=== PATIENT | male | born 2000 | race Caucasian/White ===

== ENCOUNTER 2022-12-23 11:45 | Inpatient (IN) | payer SELFPAY ==
[2022-12-23] MEDS ORDERED: Sodium Chloride 0.9% 10 ML Syringe FLUSH PRN (11:59)
[2022-12-23] MEDS ORDERED: Sodium Chloride 0.9% 2.5 ML Syringe FLUSH PRN (11:59)
[2022-12-23] MEDS ORDERED: Sodium Chloride 0.9% 1,000 ML IV STA ×2 (12:01)
[2022-12-23 12:05] LABS: BASOPHILS PERCENT AUTO 0.1 % (0.0-1.5); EOSINOPHILS PERCENT AUTO 0.2 % (0.0-7.0); HEMATOCRIT 50.3 % (38.0-50.0); HEMOGLOBIN 17.6 g/dL (13.0-17.0); LYMPHOCYTES ABSOLUTE AUTO 2.3 K/uL (0.6-2.4); LYMPHOCYTES PERCENT AUTO 18.5 % (16.0-40.0); MEAN CORPUSCULAR HEMOGLOBIN 31.1 pg (27.0-32.0); MEAN CORPUSCULAR VOLUME 88.9 fL (80.0-98.0); MONOCYTES ABSOLUTE AUTO 0.5 K/uL (0.0-0.8); MONOCYTES PERCENT AUTO 4.2 % (0.0-15.0); NEUTROPHILS ABSOLUTE AUTO 9.4 K/uL (1.4-5.7); NRBC ABSOLUTE 0 K/uL; PLATELET COUNT,PLT 476 K/uL (150-400); RED BLOOD CELL COUNT 5.66 M/uL (4.50-5.90); WHITE BLOOD CELL COUNT,WBC 12.15 K/uL (4.0-11.0)
[2022-12-23 12:17] LABS: MAGNESIUM 2.1 mg/dL (1.8-2.4); PHOSPHORUS 4.7 mg/dL (2.6-4.7)
[2022-12-23 12:20] LABS: ALBUMIN 3.6 g/dL (3.4-5.0); BASE EXCESS VENOUS -13.5 (-2.0-3.0); BILIRUBIN TOTAL 0.9 mg/dL (0.2-1.0); CALCIUM 9.6 mg/dL (8.5-10.1); CARBON DIOXIDE,CO2 15.1 mmol/L (21.0-32.0); CREATININE 1.4 mg/dL (0.8-1.3); EST CRCL DRUG DOSING (CG) 63.18 mL/min; PH,VENOUS 7.22 (7.31-7.41); PROTEIN TOTAL,TP 7.1 g/dL (6.4-8.2)
[2022-12-23] MEDS ORDERED: Insulin Regular in 0.9 % NACL 100 ML IV SCH (12:30)
[2022-12-23 13:03] LABS: BILIRUBIN,URINE NEGATIVE (NEGATIVE); COLOR,URINE YELLOW; GLUCOSE,URINE 500 mg/dL (NEGATIVE); KETONES,URINE >=80 mg/dL (NEGATIVE); PROTEIN,URINE NEGATIVE (NEGATIVE)
[2022-12-23 13:04] LABS: LEUKOCYTE ESTERASE,URINE NEGATIVE (NEGATIVE); NITRITE,URINE NEGATIVE (NEGATIVE); OCCULT BLOOD,URINE TRACE-INTACT (NEGATIVE); UROBILINOGEN,URINE 0.2 EU/dL (<2.0)
[2022-12-23 13:11] LABS: APPEARANCE,URINE HAZY
[2022-12-23 13:13] LABS: AMPHETAMINES SCREEN, URINE NEGATIVE (CUTOFF=500); BARBITURATE SCREEN,URINE NEGATIVE (CUTOFF=200); BENZODIAZEPINES SCREEN,URINE NEGATIVE (CUTOFF=150); BUPRENORPHINE SCREEN,URINE NEGATIVE (CUTOFF=10); METHADONE SCREEN, URINE NEGATIVE (CUTOFF=200); METHAMPHETAMINES SCREEN, URINE NEGATIVE (CUTOFF=500); OXYCODONE SCREEN,URINE NEGATIVE (CUT0FF=100); PCP SCREEN,URINE NEGATIVE (CUTOFF=25); PROPOXYPHENE SCREEN,URINE NEGATIVE (CUTOFF=300); THC SCREEN,URINE 20 NG/ML NEGATIVE (CUTOFF=50)
[2022-12-23 13:17] LABS: BACTERIA,URINE NOT SEEN (NEGATIVE); EPITHELIAL CELLS,URINE RARE (NONE-FEW); MUCUS,URINE LIGHT (NONE-MOD); RBC,URINE 0-1 (0-2/HPF); WBC,URINE NONE SEEN (0-5/HPF)
[2022-12-23] MEDS ORDERED: Pantoprazole 40 MG in Sodium Chloride 0.9% 10 ML IVPUSH SCH (14:45)
[2022-12-23] MEDS ORDERED: NS + KCl 20mEq/L 1,000 ML IV SCH (14:45)
[2022-12-23] MEDS ORDERED: Enoxaparin 40 MG/0.4 ML Syringe SUBCUT SCH (14:45)
[2022-12-23 15:42] LABS: CALCIUM 7.7 mg/dL (8.5-10.1); CARBON DIOXIDE,CO2 12.4 mmol/L (21.0-32.0); CREATININE 1.2 mg/dL (0.8-1.3); EST CRCL DRUG DOSING (CG) 73.71 mL/min; POTASSIUM,K 4.4 mmol/L (3.5-5.1)
[2022-12-23] MEDS: Acetaminophen 325 MG Tab PO PRN (15:43)
[2022-12-23 16:11] LABS: HEMOGLOBIN A1C >14.0 %
[2022-12-23] MEDS: Dextrose 5%-0.9% NaCl with KCl 1,000 ML IV SCH ×2 (17:56→23:10)
[2022-12-23 19:04] LABS: CALCIUM 7.6 mg/dL (8.5-10.1); CARBON DIOXIDE,CO2 17.6 mmol/L (21.0-32.0); CREATININE 0.9 mg/dL (0.8-1.3); EST CRCL DRUG DOSING (CG) 95.41 mL/min
[2022-12-23 23:01] LABS: CALCIUM 7.4 mg/dL (8.5-10.1); CREATININE 0.9 mg/dL (0.8-1.3); EST CRCL DRUG DOSING (CG) 95.41 mL/min; POTASSIUM,K 4.5 mmol/L (3.5-5.1)
[2022-12-24] MEDS ORDERED: Insuln Aspart Prot/Insulin Aspart 100 Units/ML 3 ML FlexPen SUBCUT ONE (02:30)
[2022-12-24 02:57] LABS: CALCIUM 7.4 mg/dL (8.5-10.1); CARBON DIOXIDE,CO2 22.1 mmol/L (21.0-32.0); CREATININE 0.8 mg/dL (0.8-1.3); EST CRCL DRUG DOSING (CG) 107.34 mL/min; POTASSIUM,K 3.6 mmol/L (3.5-5.1)
[2022-12-24 06:55] LABS: BASOPHILS PERCENT AUTO 0.1 % (0.0-1.5); EOSINOPHILS ABSOLUTE AUTO 0.1 K/uL (0.0-0.7); EOSINOPHILS PERCENT AUTO 0.9 % (0.0-7.0); HEMOGLOBIN 12.6 g/dL (13.0-17.0); LYMPHOCYTES ABSOLUTE AUTO 4.7 K/uL (0.6-2.4); MEAN CORPUSCULAR HEMOGLOBIN 30.5 pg (27.0-32.0); MEAN CORPUSCULAR VOLUME 87.2 fL (80.0-98.0); MONOCYTES ABSOLUTE AUTO 1.1 K/uL (0.0-0.8); MONOCYTES PERCENT AUTO 10.5 % (0.0-15.0); NEUTROPHILS ABSOLUTE AUTO 4.4 K/uL (1.4-5.7); NEUTROPHILS PERCENT AUTO 42.5 % (48.0-80.0); NRBC ABSOLUTE 0 K/uL; PLATELET COUNT,PLT 337 K/uL (150-400); RED BLOOD CELL COUNT 4.13 M/uL (4.50-5.90); WHITE BLOOD CELL COUNT,WBC 10.28 K/uL (4.0-11.0)
[2022-12-24 07:12] LABS: CALCIUM 7.5 mg/dL (8.5-10.1); CREATININE 0.7 mg/dL (0.8-1.3); EST CRCL DRUG DOSING (CG) 126.67 mL/min; POTASSIUM,K 3.3 mmol/L (3.5-5.1)
[2022-12-24] MEDS ORDERED: Insuln Aspart Prot/Insulin Aspart 100 Units/ML 3 ML FlexPen SUBCUT SCH ×2 (07:30→17:00)
[2022-12-24] MEDS: Insulin Regular, Human 100 Units/ML 10 ML Vial SUBCUT SCH ×2 (07:38→11:41)
[2022-12-24] MEDS: Acetaminophen 325 MG Tab PO PRN (10:58)
[2022-12-24] MEDS ORDERED: Insulin Glargine,Hum.Rec.Anlog 100 UNIT/ML 3 ML Pen SUBCUT SCH (11:00)
== END 2022-12-24 12:15 | disposition home or self-care (01) | DRG 638 ==
LOC: MW.ED 11:45 → UNDOADMIN 12:44 → MW.ICU 12:44
PROVIDERS: ADMIT Internal Medicine; ATTEND Internal Medicine
DX: E10.10 Type 1 diabetes mellitus with ketoacidosis without coma (principal); E87.1 Hypo-osmolality and hyponatremia; N17.9 Acute kidney failure, unspecified; R64 Cachexia; Z88.0 Allergy status to penicillin; Z88.2 Allergy status to sulfonamides; Z90.49 Acquired absence of other specified parts of digestive tract; Z98.890 Other specified postprocedural states; Z79.4 Long term (current) use of insulin; Z91.148 Patient's other noncompliance with medication regimen for other reason; Z68.20 Body mass index [BMI] 20.0-20.9, adult
CPT/HCPCS: 36415; 80048; 80053; 80305-QW; 80307; 81001; 82009; 82803; 82947; 83036; 83735; 84100; 85025; 96360; 99285; 99285-25; A9270-GY; C9113; J1650; J1815; J3480; J3490; J7030

== ENCOUNTER 2022-12-27 21:51 | Emergency (ER) | payer SELFPAY ==
[2022-12-27] MEDS ORDERED: Sodium Chloride 0.9% 2.5 ML Syringe FLUSH PRN (22:14)
[2022-12-27] MEDS ORDERED: Sodium Chloride 0.9% 1,000 ML IV ONE ×2 (22:14→22:54)
[2022-12-27] MEDS ORDERED: Sodium Chloride 0.9% 10 ML Syringe FLUSH PRN (22:14)
[2022-12-27] MEDS ORDERED: HYDROmorphone 1 MG/ML Syringe IVPUSH ONE (22:15)
[2022-12-27 22:25] LABS: BASOPHILS PERCENT AUTO 0.1 % (0.0-1.5); EOSINOPHILS ABSOLUTE AUTO 0.1 K/uL (0.0-0.7); HEMATOCRIT 37.2 % (38.0-50.0); HEMOGLOBIN 12.9 g/dL (13.0-17.0); LYMPHOCYTES ABSOLUTE AUTO 3.7 K/uL (0.6-2.4); LYMPHOCYTES PERCENT AUTO 35.4 % (16.0-40.0); MEAN CORPUSCULAR HEMOGLOBIN 31.9 pg (27.0-32.0); MEAN CORPUSCULAR HGB CONC 34.7 g/dL (31.0-37.0); MEAN CORPUSCULAR VOLUME 92.1 fL (80.0-98.0); MONOCYTES ABSOLUTE AUTO 0.8 K/uL (0.0-0.8); MONOCYTES PERCENT AUTO 7.9 % (0.0-15.0); NEUTROPHILS ABSOLUTE AUTO 5.8 K/uL (1.4-5.7); NEUTROPHILS PERCENT AUTO 55.6 % (48.0-80.0); NRBC ABSOLUTE 0 K/uL; PLATELET COUNT,PLT 368 K/uL (150-400); RED BLOOD CELL COUNT 4.04 M/uL (4.50-5.90); WHITE BLOOD CELL COUNT,WBC 10.45 K/uL (4.0-11.0)
[2022-12-27 22:27] LABS: APPEARANCE,URINE CLEAR; BILIRUBIN,URINE NEGATIVE (NEGATIVE); COLOR,URINE YELLOW; GLUCOSE,URINE >=1000 mg/dL (NEGATIVE); KETONES,URINE NEGATIVE (NEGATIVE); LEUKOCYTE ESTERASE,URINE NEGATIVE (NEGATIVE); NITRITE,URINE NEGATIVE (NEGATIVE); OCCULT BLOOD,URINE MODERATE (NEGATIVE); PH,URINE 7.5 (5.0-8.0); PROTEIN,URINE NEGATIVE (NEGATIVE)
[2022-12-27 22:35] LABS: A/G RATIO 0.9 (0.9-1.6); ALANINE AMINOTRANSFERASE,ALT 174 IU/L (14-63); ALBUMIN 2.9 g/dL (3.4-5.0); ALKALINE PHOSPHATASE 204 U/L (46-116); BILIRUBIN TOTAL 0.4 mg/dL (0.2-1.0); BLOOD UREA NITROGEN,BUN 19 mg/dL (7.0-18.0); CALCIUM 8.2 mg/dL (8.5-10.1); CARBON DIOXIDE,CO2 28.5 mmol/L (21.0-32.0); CHLORIDE,CL 102 mmol/L (98-107); CREATININE 0.9 mg/dL (0.8-1.3); EST CRCL DRUG DOSING (CG) 106.47 mL/min; ETHANOL BLOOD MEDICAL <3 mg/dL; GLUCOSE RANDOM 250 mg/dL (74-106); LIPASE 190 U/L (73-393); POTASSIUM,K 3.9 mmol/L (3.5-5.1); SODIUM,NA 139 mmol/L (136-148)
[2022-12-27 22:38] LABS: ESTIMATED GFR 123 mL/min (>60)
[2022-12-27 22:39] LABS: LACTIC ACID 3.4 mmol/L (0.4-2.0)
[2022-12-27 22:39] LABS: BACTERIA,URINE RARE (NEGATIVE); EPITHELIAL CELLS,URINE RARE (NONE-FEW); WBC,URINE 0-1 (0-5/HPF)
[2022-12-27 22:43] LABS: BASE EXCESS VENOUS 4.2 (-2.0-3.0); PH,VENOUS 7.43 (7.31-7.41)
[2022-12-27 22:43] LABS: AMPHETAMINES SCREEN, URINE PRESUMPTIVE POSITIVE (CUTOFF=500); BARBITURATE SCREEN,URINE NEGATIVE (CUTOFF=200); BENZODIAZEPINES SCREEN,URINE NEGATIVE (CUTOFF=150); BUPRENORPHINE SCREEN,URINE NEGATIVE (CUTOFF=10); METHADONE SCREEN, URINE NEGATIVE (CUTOFF=200); METHAMPHETAMINES SCREEN, URINE PRESUMPTIVE POSITIVE (CUTOFF=500); OXYCODONE SCREEN,URINE NEGATIVE (CUT0FF=100); PCP SCREEN,URINE NEGATIVE (CUTOFF=25); PROPOXYPHENE SCREEN,URINE NEGATIVE (CUTOFF=300); THC SCREEN,URINE 20 NG/ML NEGATIVE (CUTOFF=50)
[2022-12-27 23:05] LABS: ASPARTATE AMNIOTRANSFERASE,AST 264 IU/L (15-37)
[2022-12-27 23:25] LABS: PROTEIN TOTAL,TP 6.3 g/dL (6.4-8.2)
[2022-12-27] MEDS ORDERED: Iopamidol 755 MG/ML 500 ML Multipack Bottle IVPUSH STA (23:25)
== END 2022-12-28 02:40 | disposition home or self-care (01) ==
LOC: MW.ED 21:51
DX: R10.9 Unspecified abdominal pain (principal); E10.9 Type 1 diabetes mellitus without complications; Z88.0 Allergy status to penicillin; Z88.2 Allergy status to sulfonamides; Z72.0 Tobacco use
CPT/HCPCS: 36415; 74177; 80053; 80305; 80307; 81001; 82009; 82803; 82947; 83605; 83690; 83735; 85025; 96361; 96374; 99284; J1170; J3490; J7030; Q9967

== ENCOUNTER 2022-12-31 12:33 | Inpatient (IN) | payer SELFPAY ==
[2022-12-31] MEDS ORDERED: Lactated Ringers 1,000 ML IV STA ×2 (12:43→12:49)
[2022-12-31] MEDS ORDERED: Insulin Regular in 0.9 % NACL 100 ML IV SCH (13:00)
[2022-12-31 13:03] LABS: BASE EXCESS VENOUS -5.6 (-2.0-3.0); PH,VENOUS 7.29 (7.31-7.41)
[2022-12-31 13:05] LABS: BASOPHILS ABSOLUTE AUTO 0.1 K/uL (0.0-0.1); BASOPHILS PERCENT AUTO 0.6 % (0.0-1.5); EOSINOPHILS PERCENT AUTO 0.4 % (0.0-7.0); HEMATOCRIT 36.8 % (38.0-50.0); HEMOGLOBIN 12.5 g/dL (13.0-17.0); LYMPHOCYTES ABSOLUTE AUTO 2.2 K/uL (0.6-2.4); LYMPHOCYTES PERCENT AUTO 20.7 % (16.0-40.0); MEAN CORPUSCULAR HEMOGLOBIN 31.3 pg (27.0-32.0); MEAN CORPUSCULAR VOLUME 92.2 fL (80.0-98.0); MONOCYTES ABSOLUTE AUTO 0.7 K/uL (0.0-0.8); MONOCYTES PERCENT AUTO 6.1 % (0.0-15.0); NEUTROPHILS ABSOLUTE AUTO 7.7 K/uL (1.4-5.7); NEUTROPHILS PERCENT AUTO 72.2 % (48.0-80.0); PLATELET COUNT,PLT 436 K/uL (150-400); RED BLOOD CELL COUNT 3.99 M/uL (4.50-5.90); WHITE BLOOD CELL COUNT,WBC 10.65 K/uL (4.0-11.0)
[2022-12-31 13:36] LABS: MAGNESIUM 2.1 mg/dL (1.8-2.4); PHOSPHORUS 4.4 mg/dL (2.6-4.7)
[2022-12-31 13:38] LABS: A/G RATIO 0.9 (0.9-1.6); CALCIUM 8.4 mg/dL (8.5-10.1); CARBON DIOXIDE,CO2 21.4 mmol/L (21.0-32.0); CREATININE 0.9 mg/dL (0.8-1.3); EST CRCL DRUG DOSING (CG) 106.47 mL/min; PROTEIN TOTAL,TP 6.5 g/dL (6.4-8.2)
[2022-12-31] MEDS ORDERED: Sodium Chloride 0.9% 1,000 ML IV STA (13:50)
[2022-12-31 13:54] LABS: APPEARANCE,URINE CLEAR; BILIRUBIN,URINE NEGATIVE (NEGATIVE); COLOR,URINE YELLOW; GLUCOSE,URINE >=1000 mg/dL (NEGATIVE); KETONES,URINE >=80 mg/dL (NEGATIVE); LEUKOCYTE ESTERASE,URINE NEGATIVE (NEGATIVE); NITRITE,URINE NEGATIVE (NEGATIVE); OCCULT BLOOD,URINE NEGATIVE (NEGATIVE); PH,URINE 5.5 (5.0-8.0); PROTEIN,URINE NEGATIVE (NEGATIVE); UROBILINOGEN,URINE 0.2 EU/dL (<2.0)
[2022-12-31 14:03] LABS: AMPHETAMINES SCREEN, URINE NEGATIVE (CUTOFF=500); BARBITURATE SCREEN,URINE NEGATIVE (CUTOFF=200); BENZODIAZEPINES SCREEN,URINE NEGATIVE (CUTOFF=150); BUPRENORPHINE SCREEN,URINE NEGATIVE (CUTOFF=10); METHADONE SCREEN, URINE NEGATIVE (CUTOFF=200); METHAMPHETAMINES SCREEN, URINE NEGATIVE (CUTOFF=500); OXYCODONE SCREEN,URINE NEGATIVE (CUT0FF=100); PCP SCREEN,URINE NEGATIVE (CUTOFF=25); PROPOXYPHENE SCREEN,URINE NEGATIVE (CUTOFF=300); THC SCREEN,URINE 20 NG/ML NEGATIVE (CUTOFF=50)
[2022-12-31] MEDS ORDERED: Sodium Chloride 0.9% 1,000 ML IV SCH (15:45)
[2022-12-31] MEDS: Nicotine 7 MG/24 Hr Patch TRDERM SCH (17:17)
[2022-12-31] MEDS: Acetaminophen 325 MG Tab PO PRN (17:19)
[2022-12-31 17:20] LABS: CALCIUM 7.8 mg/dL (8.5-10.1); CARBON DIOXIDE,CO2 25.9 mmol/L (21.0-32.0); CREATININE 0.8 mg/dL (0.8-1.3); EST CRCL DRUG DOSING (CG) 112.31 mL/min; POTASSIUM,K 3.9 mmol/L (3.5-5.1)
[2022-12-31] MEDS: Dextrose 5%-0.45% NaCl 1,000 ML IV SCH (17:32)
[2022-12-31] MEDS: Amitriptyline 25 MG Tab PO SCH (20:51)
[2022-12-31 21:27] LABS: CALCIUM 7.3 mg/dL (8.5-10.1); CARBON DIOXIDE,CO2 23.4 mmol/L (21.0-32.0); CREATININE 0.8 mg/dL (0.8-1.3); EST CRCL DRUG DOSING (CG) 112.31 mL/min; POTASSIUM,K 4.1 mmol/L (3.5-5.1)
[2023-01-01] MEDS: Dextrose 5%-0.45% NaCl 1,000 ML IV SCH (01:14)
[2023-01-01 01:23] LABS: CALCIUM 7.3 mg/dL (8.5-10.1); CARBON DIOXIDE,CO2 25.1 mmol/L (21.0-32.0); CREATININE 0.7 mg/dL (0.8-1.3); EST CRCL DRUG DOSING (CG) 128.36 mL/min
[2023-01-01] MEDS ORDERED: 50% Dextrose in Water 50 ML Syringe IVPUSH PRN (03:45)
[2023-01-01] MEDS ORDERED: Glucagon,Human Recombinant 1 MG Vial IM PRN (03:45)
[2023-01-01] MEDS: Insulin Glargine,Hum.Rec.Anlog 100 UNIT/ML 3 ML Pen SUBCUT SCH ×2 (03:55→08:41)
[2023-01-01 06:32] LABS: CALCIUM 7.8 mg/dL (8.5-10.1); CARBON DIOXIDE,CO2 25.6 mmol/L (21.0-32.0); CREATININE 0.6 mg/dL (0.8-1.3); EST CRCL DRUG DOSING (CG) 149.75 mL/min; POTASSIUM,K 3.8 mmol/L (3.5-5.1)
[2023-01-01] MEDS: Insulin Aspart 100 Units/ML 3 ML Pen SUBCUT SCH ×3 (07:36→17:02)
[2023-01-01] MEDS: Nicotine 7 MG/24 Hr Patch TRDERM SCH (08:49)
[2023-01-01] MEDS ORDERED: Insulin Glargine,Hum.Rec.Anlog 100 UNIT/ML 3 ML Pen SUBCUT STA (09:25)
[2023-01-01] MEDS: Amitriptyline 25 MG Tab PO SCH (20:54)
[2023-01-02 06:11] LABS: BASOPHILS PERCENT AUTO 0.4 % (0.0-1.5); EOSINOPHILS ABSOLUTE AUTO 0.1 K/uL (0.0-0.7); EOSINOPHILS PERCENT AUTO 0.7 % (0.0-7.0); HEMATOCRIT 35.6 % (38.0-50.0); HEMOGLOBIN 11.9 g/dL (13.0-17.0); LYMPHOCYTES ABSOLUTE AUTO 4.1 K/uL (0.6-2.4); LYMPHOCYTES PERCENT AUTO 45.7 % (16.0-40.0); MEAN CORPUSCULAR HGB CONC 33.4 g/dL (31.0-37.0); MEAN CORPUSCULAR VOLUME 92.7 fL (80.0-98.0); MONOCYTES PERCENT AUTO 11.2 % (0.0-15.0); NEUTROPHILS ABSOLUTE AUTO 3.8 K/uL (1.4-5.7); PLATELET COUNT,PLT 394 K/uL (150-400); RED BLOOD CELL COUNT 3.84 M/uL (4.50-5.90); WHITE BLOOD CELL COUNT,WBC 8.99 K/uL (4.0-11.0)
[2023-01-02 06:21] LABS: A/G RATIO 0.8 (0.9-1.6); ALBUMIN 2.6 g/dL (3.4-5.0); BILIRUBIN TOTAL 0.3 mg/dL (0.2-1.0); CALCIUM 8.1 mg/dL (8.5-10.1); CARBON DIOXIDE,CO2 26.6 mmol/L (21.0-32.0); CREATININE 0.8 mg/dL (0.8-1.3); EST CRCL DRUG DOSING (CG) 112.31 mL/min; POTASSIUM,K 3.8 mmol/L (3.5-5.1); PROTEIN TOTAL,TP 5.8 g/dL (6.4-8.2)
[2023-01-02] MEDS: Insulin Aspart 100 Units/ML 3 ML Pen SUBCUT SCH ×3 (08:10→16:37)
[2023-01-02] MEDS: Nicotine 7 MG/24 Hr Patch TRDERM SCH (08:11)
[2023-01-02] MEDS: Insulin Glargine,Hum.Rec.Anlog 100 UNIT/ML 3 ML Pen SUBCUT SCH (08:20)
[2023-01-02] MEDS ORDERED: buPROPion 150 MG Tab.SR PO SCH (12:00)
[2023-01-02] MEDS: Topiramate 50 MG Tab PO SCH ×2 (14:54→21:11)
[2023-01-02] MEDS: buPROPion 150 MG Tab.ER PO SCH (16:37)
[2023-01-02] MEDS ORDERED: QUEtiapine 25 MG Tab PO SCH (21:00)
[2023-01-02] MEDS: Acetaminophen 325 MG Tab PO PRN (21:20)
[2023-01-02] MEDS: Amitriptyline 25 MG Tab PO SCH (21:25)
[2023-01-03 06:03] LABS: HEMATOCRIT 35.1 % (38.0-50.0); MEAN CORPUSCULAR HEMOGLOBIN 31.7 pg (27.0-32.0); MEAN CORPUSCULAR HGB CONC 34.2 g/dL (31.0-37.0); MEAN CORPUSCULAR VOLUME 92.6 fL (80.0-98.0); PLATELET COUNT,PLT 417 K/uL (150-400); RED BLOOD CELL COUNT 3.79 M/uL (4.50-5.90)
[2023-01-03] MEDS: Topiramate 50 MG Tab PO SCH ×2 (06:07→13:40)
[2023-01-03 06:21] LABS: CALCIUM 8.7 mg/dL (8.5-10.1); CARBON DIOXIDE,CO2 26.1 mmol/L (21.0-32.0); CREATININE 0.7 mg/dL (0.8-1.3); EST CRCL DRUG DOSING (CG) 128.36 mL/min; POTASSIUM,K 4.3 mmol/L (3.5-5.1)
[2023-01-03 06:44] LABS: BAND ABSOLUTE MAN 0.2; BAND PERCENT MAN 2 %; BASOPHILS ABSOLUTE MAN 0.1 (0.0-0.1); BASOPHILS PERCENT MAN 1 % (0.0-1.5); LYMPHOCYTES ABSOLUTE MAN 4.7 (0.6-2.4); LYMPHOCYTES PERCENT MAN 50 % (16.0-40.0); SEG NEUTROPHILS ABSOLUTE MAN 4.4 (1.4-5.7); SEG NEUTROPHILS PERCENT MAN 47 % (48.0-80.0)
[2023-01-03] MEDS: Insulin Aspart 100 Units/ML 3 ML Pen SUBCUT SCH ×2 (07:50→12:53)
[2023-01-03] MEDS: buPROPion 150 MG Tab.ER PO SCH (08:56)
[2023-01-03] MEDS: Nicotine 7 MG/24 Hr Patch TRDERM SCH (08:56)
[2023-01-03] MEDS: Insulin Glargine,Hum.Rec.Anlog 100 UNIT/ML 3 ML Pen SUBCUT SCH (08:57)
[2023-01-03] MEDS ORDERED: Glucagon,Human Recombinant 1 MG Vial IM PRN (12:46)
[2023-01-03] MEDS ORDERED: Insulin Aspart 100 Units/ML 3 ML Pen SUBCUT STA (12:46)
[2023-01-03] MEDS ORDERED: 50% Dextrose in Water 50 ML Syringe IVPUSH PRN (12:46)
[2023-01-03] MEDS ORDERED: Insulin Aspart 100 Units/ML 3 ML Pen SUBCUT ONE (13:49)
== END 2023-01-03 14:11 | disposition left against medical advice (07) | DRG 638 ==
LOC: MW.ED 12:33 → MW.ICU 14:24 → MW.MS 01-01 16:38
PROVIDERS: ADMIT Internal Medicine; ATTEND Internal Medicine
DX: E10.10 Type 1 diabetes mellitus with ketoacidosis without coma (principal); E87.0 Hyperosmolality and hypernatremia; F31.60 Bipolar disorder, current episode mixed, unspecified; R64 Cachexia; F41.9 Anxiety disorder, unspecified; F29 Unspecified psychosis not due to a substance or known physiological condition; F15.10 Other stimulant abuse, uncomplicated; F12.20 Cannabis dependence, uncomplicated; K74.60 Unspecified cirrhosis of liver; E87.6 Hypokalemia; G47.00 Insomnia, unspecified; J45.909 Unspecified asthma, uncomplicated; F17.210 Nicotine dependence, cigarettes, uncomplicated; Z79.4 Long term (current) use of insulin; Z79.899 Other long term (current) drug therapy; Z88.2 Allergy status to sulfonamides; Z88.0 Allergy status to penicillin; Z68.20 Body mass index [BMI] 20.0-20.9, adult; Z91.148 Patient's other noncompliance with medication regimen for other reason; Z90.49 Acquired absence of other specified parts of digestive tract
CPT/HCPCS: 36415; 80048; 80053; 80305-QW; 80307; 81003; 82009; 82803; 82947; 83735; 84100; 85025; 90792-GT; 96360; 99222; 99232; 99239; 99285; 99285-25; A9270-GY; J1815; J1815-GY; J7030; J7042; J7120